=== PATIENT | male | born 1990 | race Caucasian/White ===

== ENCOUNTER 2022-06-02 11:36 | Emergency (ER) | payer MEDICAID ==
[~2022-06-02] VITALS: Ht 182.9 cm; Wt 102.5 kg
[2022-06-02] MEDS ORDERED: IBUPROFEN 600MG TABLET PO STA (12:23)
[2022-06-02] MEDS ORDERED: NAPR-681 PO (14:31)
[2022-06-02 15:36] VITALS: BP 136/80
== END 2022-06-02 15:37 | disposition home or self-care (01) ==
LOC: ER 11:36
DX: M25.562 Pain in left knee (principal)
CPT/HCPCS: 73562; 99283